=== PATIENT | male | born 1955 | race Hispanic/Latino ===

== ENCOUNTER 2020-04-12 06:29 | Day surgery (SDC) | payer OTHER ==
[2020-04-12] MEDS ORDERED: ASPIRIN EC 325 MG TAB PO ONE (06:56)
[2020-04-12] MEDS ORDERED: SODIUM CHLORIDE 0.9% 500 ML 500 ML IV SCH (07:00)
[2020-04-12 07:13] LABS: Basophils # (Auto) 0.1 K/mm3 (0.0-0.1); Basophils % (Auto) 0.8 % (0.0-1.8); Eosinophils # (Auto) 0.5 K/mm3 (0.0-0.4); Eosinophils % (Auto) 5.3 % (0.0-4.3); Hematocrit 45.3 % (35.5-45.6); Hemoglobin 15.7 gm/dl (11.8-15.2); Lymphocytes # (Auto) 2.7 K/mm3 (1.2-5.4); Lymphocytes % (Auto) 30.1 % (13.4-35.0); Mean Corpuscular HGB Conc 35 % (32-34); Mean Corpuscular Volume 100 fl (84-94); Monocytes % (Auto) 11.7 % (0.0-7.3); Platelet Count 215 K/mm3 (140-440); Red Blood Count 4.53 M/mm3 (3.65-5.03); Red Cell Distribution Width 12.8 % (13.2-15.2)
[2020-04-12 07:27] LABS: BUN/Creatinine Ratio 21; Blood Urea Nitrogen 17 mg/dL (9-20); Calcium 9.7 mg/dL (8.4-10.2); Hemolysis Index 7; INR 0.94 (0.87-1.13)
[2020-04-12 07:28] LABS: Partial Thromboplastin Time 27.6 Sec. (24.2-36.6)
[2020-04-12] MEDS ORDERED: MIDAZOLAM 2 MG/2 ML INJ ONE (08:07)
[2020-04-12] MEDS ORDERED: HEPARIN/NS 5000 UNIT/500ML 1,000 ML IR ONE (08:07)
[2020-04-12] MEDS ORDERED: HEPARIN 10,000 UNITS/10 ML VIAL ONE (08:07)
[2020-04-12] MEDS ORDERED: VERAPAMIL 5 MG/2 ML INJ ONE (08:07)
[2020-04-12] MEDS ORDERED: NITROGLYCERIN SYRINGE 3 ML ONE (08:08)
[2020-04-12] MEDS: fentaNYL 100 MCG/2 ML INJ ONE ×2 (08:38→09:00)
[2020-04-12] MEDS: LIDOCAINE (2%) 20 MG/1 ML VIAL 20 ML MDV INFILTRATI ONE ×4 (08:41→08:58)
--- NOTE | 2020-04-12 10:11 | Short Stay Summary ---
Short Stay Documentation Date of service: 04/12/20 - History H&P: obtained from office - Allergies and Medications Current Medications: Allergies codeine Adverse Reaction (Verified 04/12/20 06:56) Nausea Home Medications Medication Instructions Recorded Confirmed Last Taken Type Aspirin [Adult Aspirin] 81 mg PO DAILY 04/12/20 04/12/20 04/10/20 History AtorvaSTATin [Lipitor] 40 mg PO QHS 04/12/20 04/12/20 04/11/20 History Cholecalciferol Vit D3 [Vitamin D3 1,000 unit PO QWEEK 04/12/20 04/12/20 04/11/20 History 1,000 UNIT TAB] Elviteg/Cob/Emtri/Tenof Alafen 1 each PO DAILY 04/12/20 04/12/20 04/11/20 History [Genvoya Tablet] Ezetimibe [Zetia] 10 mg PO DAILY 04/12/20 04/12/20 04/11/20 History Isosorbide Dinitrate [Isordil] 10 mg PO TID 04/12/20 04/12/20 04/11/20 History Metoprolol [Lopressor] 25 mg PO BID 04/12/20 04/12/20 04/11/20 History [place]-3 Fatty Acids/Fish Oil [Fish 1,000 mg PO DAILY 04/12/20 04/12/20 04/11/20 History Oil] Oxybutynin [Ditropan] 5 mg PO BID 04/12/20 04/12/20 04/11/20 History Silodosin [Rapaflo] 8 mg PO DAILY 04/12/20 04/12/20 04/11/20 History Ubidecarenone [Co Q-10] 100 mg PO DAILY 04/12/20 04/12/20 04/11/20 History Zolpidem [Ambien] 10 mg PO QHS 04/12/20 04/12/20 04/11/20 History Active Medications Sodium Chloride (Nacl 0.9% 500 Ml) 500 mls @ 50 mls/hr IV DIRECT LAURE Stop: 04/12/20 16:59 Last Admin: 04/12/20 07:16 Dose: 50 mls/hr Documented by: - Brief post op/procedure progress note Date of procedure: 04/12/20 Pre-op diagnosis: sob Post-op diagnosis: same Procedure: see report Anesthesia: local Estimated blood loss: none - Disposition Condition at discharge: Good - Discharge Diagnoses (1) HIV (human immunodeficiency virus infection) Status: Chronic Qualifiers: HIV symptom status: asymptomatic Qualified Code(s): Z21 - Asymptomatic human immunodeficiency virus [HIV] infection status (2) HTN (hypertension), benign Status: Chronic (3) Hyperlipemia, mixed Status: Chronic (4) CAD (coronary artery disease) Status: Chronic Qualifiers: Coronary Disease-Associated Artery/Lesion type: [place] artery Associated angina: with stable angina (5) SOB (shortness of breath) on exertion Status: Chronic Short Stay Discharge Plan Activity: advance as tolerated Diet: low cholesterol, low salt Wound: keep clean and dry Follow up with: KILO ALEXANDER MD [Primary Care Provider] - 7 Days
--- NOTE | 2020-04-12 10:33 | Cardiac Catherization Report ---
CLINICAL INFORMATION: A 64-year-old gentleman with obesity, HIV, coronary artery disease, has known chronic total occlusion of the RCA, presents with persistent shortness of breath, some atypical chest pain with intermediate stress test, here for left heart catheterization, done with moderate sedation; 8:38 started and finished at 9: 18 which is 40 minutes of moderate sedation. Procedure was initially tried via the right radial, but could not get access, I had to go through the right femoral artery, sterile technique, local anesthesia, 5-Stateless groin sheath inserted. Left system engaged with JL5 catheter. FINDINGS: Left main is large and patent, bifurcates to a medium caliber LAD, mid diffuse 20%. Diagonal 1 is a small caliber vessel, less than 2 mm, proximal 80%. Circumflex medium caliber vessel, proximal patent, mid focal 60% after small to medium caliber. OM1 is patent and OM2 is patent and has extensive collateralization via the distal circumflex going into the RCA, feeding into the PDA, PLV. RCA engaged with JR4. Proximal is a large caliber vessel that proximally is 100%. LV gram done in ASH shows normal LV function. EF 50-55%. LVEDP 60 mmHg. LV is 116, aortic is 116/71. No gradient across the aortic valve on pullback. 5-Stateless catheters all taken over guidewire, 5-Stateless groin sheath discontinued. Manual pressure held. No hematoma, no bleeding. SUMMARY: Left main patent, LAD mid diffuse 20%. Diagonal 1 small caliber, 80% proximal; circumflex, mid 60%. OM1 patent, OM2 patent. Extensive left to right collaterals feeding into the distal RCA with RCA proximal 100%, large caliber. The patient will be referred for possible [employer]PERATOR of the RCA. Discussed this with the patient and the patient's family. The patient will initiate nitrate therapy again, see if he can tolerate. JOB# [id number] DEIDRE/SONALI
[2020-04-12 14:03] VITALS: BP 101/60
== END 2020-04-12 13:50 | disposition home or self-care (01) ==
LOC: CATH 06:29
PROVIDERS: ATTEND Internal Medicine
DX: R07.89 Other chest pain (principal); R06.02 Shortness of breath; I25.10 Atherosclerotic heart disease of native coronary artery without angina pectoris; I10 Essential (primary) hypertension; E78.2 Mixed hyperlipidemia; B20 Human immunodeficiency virus [HIV] disease; J45.909 Unspecified asthma, uncomplicated; M19.90 Unspecified osteoarthritis, unspecified site; E11.9 Type 2 diabetes mellitus without complications; E66.9 Obesity, unspecified; Z68.37 Body mass index [BMI] 37.0-37.9, adult; Z88.5 Allergy status to narcotic agent; Z79.899 Other long term (current) drug therapy; Z79.82 Long term (current) use of aspirin; Z98.890 Other specified postprocedural states
CPT/HCPCS: 36415; 80048; 85025; 85610; 85730; 93005; 93458; 99156; 99157; C1894; J1644; J2250; J3010; J7040; Q9967